=== PATIENT | male | born 1995 | race Caucasian/White ===

== ENCOUNTER 2020-08-15 10:15 | Emergency (ER) | payer SELFPAY ==
[~2020-08-15] VITALS: Ht 200.7 cm; Wt 150.0 kg
--- NOTE | 2020-08-15 10:49 | RAD ---
XR CHEST 1V INDICATION: Reason: sob / Spl. Instructions: / History: . COMPARISON STUDY: None. FINDINGS: Lungs: Normal lung volume. No pulmonary mass or consolidation. The tracheobronchial tree and hilar st ructures are normal. Pleura: No pleural effusion or pneumothorax. Heart and Mediastinum: The cardiomediastinal silhouette is normal. The great vessels of the thorax ar e normal. Bones and Soft Tissues: The bones and soft tissues are within normal limits. IMPRESSION: No acute cardiopulmonary process. Electronically signed by: Parth Howe MD (08/15/2020 10:47 AM) [id number]
[2020-08-15 10:56] LABS: BASO % 0 % (0-3); EOS # 0.2 x10^3/uL (0.0-0.7); EOS % 2 % (0-3); HEMATOCRIT 47.7 % (39.0-53.0); LYMPH # 2.9 x10^3/uL (1.0-4.8); LYMPH % 25 % (24-48); MEAN CORPUSCULAR HEMOGLOBIN 29 pg (25-35); MEAN CORPUSCULAR HGB CONC 34 g/dL (31-37); MEAN CORPUSCULAR VOLUME 85 fL (79-100); MONO % 8 % (0-9); NEUT # 7.4 x10^3uL (1.8-7.7); NEUT % 65 % (31-73); PLATELET COUNT 261 x10^3/uL (140-400); RED BLOOD COUNT 5.61 x10^6/uL (4.30-5.70); RED CELL DISTRIBUTION WIDTH 13.1 % (11.5-14.5); WHITE BLOOD COUNT 11.5 x10^3/uL (4.0-11.0)
[2020-08-15 10:58] LABS: CALCIUM 9.4 mg/dL (8.5-10.1); CREATININE 1.1 mg/dL (0.7-1.3); GFR 82.2; POTASSIUM 3.8 mmol/L (3.5-5.1)
[2020-08-15 11:10] LABS: ALBUMIN 4.1 g/dL (3.4-5.0); ALBUMIN/GLOBULIN RATIO 1.2 (1.0-1.7); C REACTIVE PROTEIN 1.3 mg/L (0-3.3); TOTAL BILIRUBIN 0.5 mg/dL (0.2-1.0); TOTAL PROTEIN 7.6 g/dL (6.4-8.2)
--- NOTE | 2020-08-15 11:38 | PHYS DOC ---
Past History Past Medical History: Anxiety, Asthma, Depression Past Surgical History: No Surgical History Alcohol Use: Occasionally Adult General Chief Complaint Chief Complaint: CHEST PAIN HPI HPI Patient is a 25-year-old male past medical history of asthma who presents to the emergency room complaining of 2 to 3 weeks of shortness of breath and cough. Patient states that he has been tested for novel coronavirus twice and has been negative. Does not have any URI symptoms. He denies sore throat, rhinorrhea, fever, chills, sweats, headache, vomiting, diarrhea, constipation, body aches. He does have some mild nausea and chest pains with this. He states the chest pains are intermittent in nature. They are typically bilateral and achy. He does have some wheezing but states this is not unusual for him given his asthma. He was placed on doxycycline and prednisone last week for asthma and states that this seems to have helped but now his symptoms have returned. Review of Systems Review of Systems Complete ROS is negative unless otherwise documented in HPI Allergies Allergies Allergies Coded Allergies Type Severity Reaction Last Updated Verified No Known Drug Allergies 08/15/20 No Physical Exam Physical Exam General: Awake, alert, NAD. Well Nourished, well hydrated. Cooperative HEENT: Atraumatic, EOMI, PERRL, airway patent, moist oral mucosa Neck: Supple, trachea midline Respiratory: CTA bilaterally, normal effort, no wheezing/crackles CV: Tachycardia, no murmur, cap refill <2 GI: Soft, nondistended, nontender, no masses MSK: No obvious deformities Skin: Warm, dry, intact Neuro: A&O x3, speech NL, sensory and motor grossly intact, no focal deficits Psych: Normal affect, normal mood, not suicidal or homicidal Current Patient Data Vital Signs Vital Signs Date Time Temp Pulse Resp B/P (MAP) Pulse Ox O2 Delivery O2 Flow Rate FiO2 08/15/20 10:20 99.7 110 20 160/57 (91) 100 Room Air Lab Results Laboratory Tests Test 08/15/20 10:21 White Blood Count 11.5 x10^3/uL (4.0-11.0) H Red Blood Count 5.61 x10^6/uL (4.30-5.70) Hemoglobin 16.0 g/dL (13.0-17.5) Hematocrit 47.7 % (39.0-53.0) Mean Corpuscular Volume 85 fL (79-100) Mean Corpuscular Hemoglobin 29 pg (25-35) Mean Corpuscular Hemoglobin Concent 34 g/dL (31-37) Red Cell Distribution Width 13.1 % (11.5-14.5) Platelet Count 261 x10^3/uL (140-400) Neutrophils (%) (Auto) 65 % (31-73) Lymphocytes (%) (Auto) 25 % (24-48) Monocytes (%) (Auto) 8 % (0-9) Eosinophils (%) (Auto) 2 % (0-3) Basophils (%) (Auto) 0 % (0-3) Neutrophils # (Auto) 7.4 x10^3uL (1.8-7.7) Lymphocytes # (Auto) 2.9 x10^3/uL (1.0-4.8) Monocytes # (Auto) 1.0 x10^3/uL (0.0-1.1) Eosinophils # (Auto) 0.2 x10^3/uL (0.0-0.7) Basophils # (Auto) 0.0 x10^3/uL (0.0-0.2) Sodium Level 139 mmol/L (136-145) Potassium Level 3.8 mmol/L (3.5-5.1) Chloride Level 101 mmol/L (98-107) Carbon Dioxide Level 32 mmol/L (21-32) Anion Gap 6 (6-14) Blood Urea Nitrogen 16 mg/dL (8-26) Creatinine 1.1 mg/dL (0.7-1.3) Estimated GFR (Cockcroft-Gault) 82.2 BUN/Creatinine Ratio 15 (6-20) Glucose Level 113 mg/dL (70-99) H Calcium Level 9.4 mg/dL (8.5-10.1) Total Bilirubin 0.5 mg/dL (0.2-1.0) Aspartate Amino Transferase (AST) 18 U/L (15-37) Alanine Aminotransferase (ALT) 42 U/L (16-63) Alkaline Phosphatase 69 U/L (46-116) Lactate Dehydrogenase 203 U/L (85-227) Troponin I Quantitative < 0.017 ng/mL (0-0.055) C-Reactive Protein 1.3 mg/L (0-3.3) XN-Xct-P-Type Natriuretic Peptide 11 pg/mL (0-124) Total Protein 7.6 g/dL (6.4-8.2) Albumin 4.1 g/dL (3.4-5.0) Albumin/Globulin Ratio 1.2 (1.0-1.7) EKG EKG [] Radiology/Procedures Radiology/Procedures [] Heart Score Risk Factors: Risk Factors: DM, Current or recent (<one month) smoker, HTN, HLP, family history of CAD, obesity. Risk Scores: Risk Factors: DM, Current or recent (<one month) smoker, HTN, HLP, family history of CAD, obesity. Course & Med Decision Making Course & Med Decision Making Pertinent Labs and Imaging studies reviewed. (See chart for details) Patient is a 25-year-old male who presents to the emergency room complaining of chest pain, shortness of breath. Patient is overall well-appearing on exam. He does have some tachycardia. This raises concern for possible pulmonary embolism. Shortness of breath and chest pain work-up were ordered including CBC, CMP, CRP, D-dimer. Chest x-ray is normal. Lab work is unremarkable. Patient likely has bronchitis, asthma, reflux all attributing to his cough and chest pain. We will place him on Nexium, steroids, azithromycin for reflux and asthma exacerbation. Patient's test results and vitals while in the ED were fully reviewed and discussed with the patient. Patient is stable and at this time does not need admission to the hospital. We have discussed strict return precautions and the importance of following up with their Primary Care Physician. Patient stated understanding and was given an opportunity to ask any questions. Patient is in agreement with plan. Dragon Disclaimer Dragon Disclaimer This electronic medical record was generated, in whole or in part, using a voice recognition dictation system. Departure Departure: Impression: Primary Impression: Bronchitis Additional Impression: GERD (gastroesophageal reflux disease) Disposition: 01 DC HOME SELF CARE/HOMELESS Condition: STABLE Referrals: PCP,NO (PCP) Patient Instructions: Acute Bronchitis, Gastroesophageal Reflux Disease, Adult Scripts Methylprednisolone (MEDROL) 4 Mg Tab.ds.pk 1 PKG PO UD for asthma, #1 PKG Prov: CONI BINGHAM MD 08/15/20 Azithromycin (ZITHROMAX) 250 Mg Tablet 1 PKG PO UD for bronchitis, #6 TAB Prov: CONI BINGHAM MD 08/15/20 Esomeprazole Magnesium (NEXIUM CAPSULE) 20 Mg Capsule.dr 1 CAP PO DAILY for GERD, #30 CAP 2 Refills Prov: CONI BINGHAM MD 08/15/20 Problem Qualifiers CONI BINGHAM MD Aug 15, 2020 11:38
[2020-08-15 11:56] VITALS: BP 144/56
[2020-08-15] MEDS ORDERED: ESOM20CA PO (12:05)
[2020-08-15] MEDS ORDERED: AZIT250T PO (12:05)
[2020-08-15] MEDS ORDERED: METH4TAB2 PO (12:05)
--- NOTE | 2020-08-15 14:21 | EKG ---
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
== END 2020-08-15 12:15 | disposition home or self-care (01) ==
LOC: ER 10:15
DX: J45.909 Unspecified asthma, uncomplicated (principal); K21.9 Gastro-esophageal reflux disease without esophagitis; R05 Cough; R06.02 Shortness of breath; F41.9 Anxiety disorder, unspecified; F32.9 Major depressive disorder, single episode, unspecified
CPT/HCPCS: 36415; 71045; 80053; 83615; 83880; 84484; 85025; 85379; 86140; 93005; 99285

== ENCOUNTER 2020-08-21 13:31 | Emergency (ER) | payer SELFPAY ==
[~2020-08-21] VITALS: Ht 200.7 cm; Wt 150.0 kg
[~2020-08-21 13:31] MED LIST: AZIT250T PO; ESOM20CA PO; METH4TAB2 PO
[2020-08-21 13:45] VITALS: BP 158/108
[2020-08-21] MEDS ORDERED: IOHEXOL 300 MG/ML 75 ML VIAL. IV ONE (14:15)
[2020-08-21] MEDS ORDERED: CONTRAST GIVEN. MC PRN (14:15)
[2020-08-21] MEDS ORDERED: ONDANSETRON PF 4 MG/2 ML VIAL. IVP ONE (14:15)
[2020-08-21] MEDS ORDERED: IV NORMAL SALINE 1,000ML 1,000 ML IV ONE (14:15)
[2020-08-21 14:26] LABS: BASO # 0.1 x10^3/uL (0.0-0.2); BASO % 1 % (0-3); EOS % 0 % (0-3); HEMATOCRIT 46.7 % (39.0-53.0); HEMOGLOBIN 15.5 g/dL (13.0-17.5); LYMPH # 1.8 x10^3/uL (1.0-4.8); LYMPH % 13 % (24-48); MEAN CORPUSCULAR HEMOGLOBIN 28 pg (25-35); MEAN CORPUSCULAR HGB CONC 33 g/dL (31-37); MEAN CORPUSCULAR VOLUME 86 fL (79-100); MONO # 0.8 x10^3/uL (0.0-1.1); MONO % 6 % (0-9); NEUT # 10.9 x10^3uL (1.8-7.7); NEUT % 80 % (31-73); PLATELET COUNT 249 x10^3/uL (140-400); RED BLOOD COUNT 5.45 x10^6/uL (4.30-5.70); RED CELL DISTRIBUTION WIDTH 13.3 % (11.5-14.5); WHITE BLOOD COUNT 13.7 x10^3/uL (4.0-11.0)
[2020-08-21 14:36] LABS: CALCIUM 9.1 mg/dL (8.5-10.1); CREATININE 1.2 mg/dL (0.7-1.3); GFR 74.4; POTASSIUM 3.9 mmol/L (3.5-5.1)
[2020-08-21 14:47] LABS: ALBUMIN/GLOBULIN RATIO 1.1 (1.0-1.7); MAGNESIUM 2.1 mg/dL (1.8-2.4); TOTAL BILIRUBIN 0.5 mg/dL (0.2-1.0); TOTAL PROTEIN 7.7 g/dL (6.4-8.2)
--- NOTE | 2020-08-21 15:01 | RAD ---
INDICATION : Reason: RUQ abd pain, pale colored stools / Spl. Instructions: / History: COMPARISON: None TECHNIQUE: Multiple ultrasound images obtained through the abdomen in grayscale and color. Some limit ation secondary to overlying structures obscuring. FINDINGS: Liver: Echotexture within normal limits in visualized portions of liver. Gallbladder: No wall thickening or stones. IVC: Obscured by bowel gas Common Bile Duct: Not dilated. Pancreas: Obscured by bowel gas Right Kidney: No hydronephrosis. IMPRESSION: * No biliary ductal dilation or gallstones. Electronically signed by: Ki Sinha MD (08/21/2020 2:59 PM) [id number]
--- NOTE | 2020-08-21 15:19 | PHYS DOC ---
Past History Past Medical History: Anxiety, Asthma, Depression Past Surgical History: No Surgical History Alcohol Use: Occasionally General Adult EDM: Chief Complaint: ALLERGIC REACTION HPI: HPI: Patient is a 25-year-old male presents the emergency department with concerns that he is having a reaction to Zithromax that was prescribed at his recent ER v isit. Patient denies any rash, itching, shortness of breath, or wheezing. He reports that he has a dark area to the shaft of his penis, right upper quadrant abdominal pain, epigastric pain, and had a white-colored stool that began yesterday. Patient denies any injury or pain to his penis, he reports recent masturbation last night. He denies any dysuria, hematuria, increased urinary frequency, or irregular penile discharge. The patient also denies any nausea, vomiting, diarrhea, fever, cough, sore throat, body aches, cough, chest pain, palpitations, numbness, tingling, or weakness. Currently denies any pain. Review of Systems: Review of Systems: Complete ROS is negative unless otherwise noted in HPI. Current Medications: Current Meds: Current Medications Medications (Trade) Dose Ordered Sig/Tita Start Time Stop Time Status Last Admin Dose Admin Info (Do NOT chart on this entry -- for MONITORING) 1 each PRN DAILY PRN 08/21/20 14:15 08/23/20 14:14 Iohexol (Omnipaque 300 Mg/ml) 75 ml 1X ONCE 08/21/20 14:15 08/21/20 14:16 DC Ondansetron HCl (Zofran) 4 mg 1X ONCE 08/21/20 14:15 08/21/20 14:16 DC Sodium Chloride 1,000 ml @ 1,000 mls/hr 1X ONCE 08/21/20 14:15 08/21/20 15:14 08/21/20 14:13 1,000 MLS/HR Allergies: Allergies: Allergies Coded Allergies Type Severity Reaction Last Updated Verified No Known Drug Allergies 08/21/20 No Physical Exam: PE: See Above Constitutional: Well developed, well nourished, no acute distress, non-toxic appearance, obese. [] HENT: Normocephalic, atraumatic, bilateral external ears normal, nose normal. [] Eyes: PERRLA, EOMI, conjunctiva normal, no discharge. [] Neck: Normal range of motion, no stridor. [] Cardiovascular:Heart rate regular rhythm Lungs & Thorax: Respirations even and unlabored, no retractions, no respiratory distress Abdomen: soft, no tenderness, no palpable mass, no pulsatile mass Male : Normal appearing urethra, circumcised, testicles descended bilaterally, there is a bruise noted to the shaft of the penis at the 6 o'clock position, no ulceration or vesicular lesion, no erythema Skin: Warm, dry, no erythema, no rash. [] Extremities: No cyanosis, ROM intact, no edema. [] Neurologic: Alert and oriented X 3, no focal deficits noted. [] Psychologic: Affect normal, judgement normal, mood normal. [] Current Patient Data: Labs: Laboratory Tests Test 08/21/20 14:12 White Blood Count 13.7 x10^3/uL (4.0-11.0) H Red Blood Count 5.45 x10^6/uL (4.30-5.70) Hemoglobin 15.5 g/dL (13.0-17.5) Hematocrit 46.7 % (39.0-53.0) Mean Corpuscular Volume 86 fL (79-100) Mean Corpuscular Hemoglobin 28 pg (25-35) Mean Corpuscular Hemoglobin Concent 33 g/dL (31-37) Red Cell Distribution Width 13.3 % (11.5-14.5) Platelet Count 249 x10^3/uL (140-400) Neutrophils (%) (Auto) 80 % (31-73) H Lymphocytes (%) (Auto) 13 % (24-48) L Monocytes (%) (Auto) 6 % (0-9) Eosinophils (%) (Auto) 0 % (0-3) Basophils (%) (Auto) 1 % (0-3) Neutrophils # (Auto) 10.9 x10^3uL (1.8-7.7) H Lymphocytes # (Auto) 1.8 x10^3/uL (1.0-4.8) Monocytes # (Auto) 0.8 x10^3/uL (0.0-1.1) Eosinophils # (Auto) 0.0 x10^3/uL (0.0-0.7) Basophils # (Auto) 0.1 x10^3/uL (0.0-0.2) Sodium Level 138 mmol/L (136-145) Potassium Level 3.9 mmol/L (3.5-5.1) Chloride Level 102 mmol/L (98-107) Carbon Dioxide Level 30 mmol/L (21-32) Anion Gap 6 (6-14) Blood Urea Nitrogen 16 mg/dL (8-26) Creatinine 1.2 mg/dL (0.7-1.3) Estimated GFR (Cockcroft-Gault) 74.4 BUN/Creatinine Ratio 13 (6-20) Glucose Level 111 mg/dL (70-99) H Calcium Level 9.1 mg/dL (8.5-10.1) Magnesium Level 2.1 mg/dL (1.8-2.4) Total Bilirubin 0.5 mg/dL (0.2-1.0) Aspartate Amino Transferase (AST) 15 U/L (15-37) Alanine Aminotransferase (ALT) 39 U/L (16-63) Alkaline Phosphatase 66 U/L (46-116) Total Protein 7.7 g/dL (6.4-8.2) Albumin 4.0 g/dL (3.4-5.0) Albumin/Globulin Ratio 1.1 (1.0-1.7) Lipase 83 U/L (73-393) Vital Signs: Vital Signs Date Time Temp Pulse Resp B/P (MAP) Pulse Ox O2 Delivery O2 Flow Rate FiO2 08/21/20 13:45 97.3 117 18 158/108 (125) 99 Room Air EKG: EKG: [] Radiology/Procedures: Radiology/Procedures: PROCEDURE: ABDOMEN LTD INDICATION : Reason: RUQ abd pain, pale colored stools / Spl. Instructions: / History: COMPARISON: None TECHNIQUE: Multiple ultrasound images obtained through the abdomen in grayscale and color. Some limitation secondary to overlying structures obscuring. FINDINGS: Liver: Echotexture within normal limits in visualized portions of liver. Gallbladder: No wall thickening or stones. IVC: Obscured by bowel gas Common Bile Duct: Not dilated. Pancreas: Obscured by bowel gas Right Kidney: No hydronephrosis. IMPRESSION: * No biliary ductal dilation or gallstones. [] Heart Score: Risk Factors: Risk Factors: DM, Current or recent (<one month) smoker, HTN, HLP, family history of CAD, obesity. Risk Scores: Score 0 - 3: 2.5% MACE over next 6 weeks - Discharge Home Score 4 - 6: 20.3% MACE over next 6 weeks - Admit for Clinical Observation Score 7 - 10: 72.7% MACE over next 6 weeks - Early Invasive Strategies Course & Med Decision Making: Course & Med Decision Making Pertinent Labs and Imaging studies reviewed. (See chart for details) Patient is 25-year-old male who presents emergency department with complaints including a white-colored bowel movement and a discolored area to the shaft of his penis. Work-up included labs, ultrasound, and IV fluids. CBC revealed a mildly elevated white blood cell count of 13.7 otherwise unremarkable, CMP revealed elevated blood glucose of 111 otherwise unremarkable, liver enzymes and lipase were within normal limits; UA was unremarkable.. Ultrasound revealed no acute findings. Advised patient that white stools are most likely caused by fat in the stool. I discussed his labs and ultrasound report with him. I encouraged patient to follow-up with a primary care doctor for further evaluation. I reassured the patient that his symptoms were not due to an allergic reaction from the previously prescribed medications. I encouraged him to continue taking medications as prescribed. Return to the ER if symptoms worsen or fever develop. Patient verbalized an understanding of home care, medications, follow-up, and return to ED instructions and was in agreement with the plan of care. [] [place] Disclaimer: [place] Disclaimer: This electronic medical record was generated, in whole or in part, using a voice recognition dictation system. Departure Departure: Impression: Primary Impression: Nontraumatic hematoma of penis Additional Impression: Pale stool Disposition: 01 DC HOME SELF CARE/HOMELESS Condition: STABLE Referrals: PCP,NO (PCP) Patient Instructions: Fecal Fat, Hematoma, [id number] Additional Instructions: The white discoloration in your stool is likely to be due to fat. Follow-up wit h your primary care doctor for further evaluation and treatment, return to the ER if your symptoms worsen or fever develops. SOLOMON FREITAS APRN Aug 21, 2020 15:19
[2020-08-21 15:23] LABS: BILIRUBIN,URINE NEG (NEG); CLARITY,URINE CLEAR; COLOR,URINE YELLOW; GLUCOSE,URINE NEG (NEG); NITRITE,URINE NEG (NEG); UROBILINOGEN,URINE 0.2 mg/dL (0.2 mg/dL)
[2020-08-21 15:24] LABS: BACTERIA,URINE 0 /HPF (0-FEW); RBC,URINE RARE /HPF (0-2); WBC,URINE 0 /HPF (0-4)
== END 2020-08-21 15:38 | disposition home or self-care (01) ==
LOC: ER 13:31
DX: N48.89 Other specified disorders of penis (principal); R19.5 Other fecal abnormalities; R10.11 Right upper quadrant pain; R10.13 Epigastric pain; F41.9 Anxiety disorder, unspecified; F32.9 Major depressive disorder, single episode, unspecified; J45.909 Unspecified asthma, uncomplicated
CPT/HCPCS: 36415; 76705; 80053; 81001; 83690; 83735; 85025; 96360; 99284; J7030